=== PATIENT | male | born 1980 | race Caucasian/White ===

== ENCOUNTER → 2020-05-20 | Outpatient (CLI) | payer BC | LOC: ZCOL.LAB 23:23 | DX: U07.1 COVID-19 (principal) ==

== ENCOUNTER → 2021-01-15 | Outpatient (CLI) | payer OTHER, BC | LOC: COL.RAD 15:05 | DX: H91.92 Unspecified hearing loss, left ear (principal); V89.2XXA Person injured in unspecified motor-vehicle accident, traffic, initial encounter ==